=== PATIENT | female | born 1995 | race Caucasian/White ===

== ENCOUNTER 2016-07-16 23:09 | Emergency (ER) | payer OTHER ==
[2016-07-16 23:40] VITALS: TEMP 98.2
--- NOTE | 2016-07-17 00:44 | EDPHY ---
H & P Time Seen by Provider: 07/17/16 00:38 HPI/ROS: CHIEF COMPLAINT: buttock laceration HISTORY OF PRESENT ILLNESS: 21-year-old female presents emergency department with a laceration to her buttocks. Patient was ice skating and fell on the toe pic of her ice skate. Tetanus is up-to-date, no head strike, no numbness or tingling in her legs, no other complaints. Smoking Status: Never smoked Physical Exam: GEN: Awake, alert, oriented, no acute distress RESP: nl resp effort MSK: Normal appearing SKIN: 2 cm superficial laceration to proximal medial left buttock Constitutional: Initial Vital Signs Temperature (C) 36.8 C 07/16/16 23:37 Heart Rate 86 07/16/16 23:37 Respiratory Rate 18 07/16/16 23:37 Blood Pressure 140/82 H 07/16/16 23:37 O2 Sat (%) 98 07/16/16 23:37 O2 Delivery Mode Room Air Allergies/Adverse Reactions: No Known Allergies Allergy (Unverified 07/16/16 23:37) Home Medications: Medication Instructions Recorded Iud 07/16/16 MDM/Departure - MDM Procedures: Procedure: Laceration repair. Verbal consent was obtained from the patient. The was 2 cm laceration on the left buttock was anesthetized using 1% lidocaine without epinephrine. The wound was carefully irrigated by the emergency department quick service technician. Next, the wound was prepped and draped in sterile fashion and explored to its base with a gloved finger. There were no deep structures involved. No vascular injury was identified. No foreign bodies were identified. The wound was repaired with 5.0 Prolene, 5 simple interrupted sutures. The wound repair was simple. The procedure was performed by myself. Tetanus and antibiotic status were addressed. - Depart Disposition: Home, Routine, Self-Care Clinical Impression: Laceration of buttock Qualifiers: Encounter type: initial encounter Laterality: left Qualified Code(s): S31.821A - Laceration without foreign body of left buttock, initial encounter Condition: Good Instructions: Laceration (ED) Additional Instructions: Return to the emergency department 12-14 days for suture removal, return sooner for any signs of infection. Referrals: NONE *PRIMARY CARE P,. [Primary Care Provider] - As per Instructions
[2016-07-17 01:11] VITALS: BP 119/68; PULSE 72; RESP 16; O2SAT 96
== END 2016-07-17 01:11 | disposition home or self-care (01) ==
PROC: 0HQ8XZZ Repair Buttock Skin, External Approach (ICD-10-PCS; principal; 2016-07-16)
DX: S31.821A Laceration without foreign body of left buttock, initial encounter (principal); V00.211A Fall from ice-skates, initial encounter; Y99.8 Other external cause status; Y93.21 Activity, ice skating